=== PATIENT | female | born 1965 | race Two or more races ===

== ENCOUNTER → 2025-03-08 | Day surgery (SDC) | payer MEDICAID ==
[2025-03-06 10:10] LABS: Hematocrit 42.0 % (36.0-46.0); Hemoglobin 14.5 g/dL (12.2-16.2); Mean Corpuscular Hemoglobin 29.4 pg (28.0-32.0); Mean Corpuscular Volume 85.5 fL (80.0-100.0); Nucleated Red Blood Cells % 0.1 %
[2025-03-06 10:27] LABS: INR 0.93 (0.9-1.15); Partial Thromboplastin Time 26.4 SEC (24.5-34.5); Prothrombin Time 9.9 sec (9.3-11.8)
[2025-03-06 10:39] LABS: Alanine Aminotransferase 21 U/L (7-40); Albumin 4.8 g/dL (3.2-4.8); Alkaline Phosphatase 104 U/L (46-116); Anion Gap 7 (5-15); BUN/Creatinine Ratio 13.9 (10.0-20.0); Blood Urea Nitrogen 10 mg/dL (9-23); Calcium 10.3 mg/dL (8.7-10.4); Carbon Dioxide 31 mmol/L (20-31); Chloride 104 mmol/L (98-107); Glucose 105 mg/dL (74-106); Potassium 4.2 mmol/L (3.5-5.1); Sodium 142 mmol/L (136-145); Total Protein 7.3 g/dL (5.7-8.2)
[2025-03-06 10:40] LABS: Bilirubin, Total 0.6 mg/dL (0.2-1.0)
[~2025-03-08] VITALS: Ht 152.4 cm; Wt 72.6 kg
[~2025-03-08] MED LIST: LEVO88TA4 PO; LISI40TA16 PO; MIDAZOLAM HCL 2MG/2ML 2ml VIAL (1mg/ml) ONE; SEMA2INJ3 SC; SERT-206 PO
[2025-03-08] MEDS: fentaNYL CITRATE 100 MCG/2 ML VL ONE (11:54)
[2025-03-08] MEDS: MIDAZOLAM HCL 2MG/2ML 2ml VIAL (1mg/ml) ONE (11:54)
--- NOTE | 2025-03-08 12:08 | DVHNC2 ---
Procedure - PROCEDURE DATE: MARCH 08, 2025 PERFORMED BY: DR. JOE REFERRING PROVIDER:DR ARNETT PROCEDURE PERFORMED: 1. COLONOSCOPY WITH MODERATE SEDATION PREPROCEDURE DIAGNOSIS: 1. COLON CANCER SCREENING 2. CONSTIPAITON POSTPROCEDURE DIAGNOSIS: 1. INTERNAL/EXTERNAL HEMORRHOIDS 2. MODERATE DIVERTICULOSIS MEDICATIONS USED: 2MG OF VERSED AND 25 MCG OF FENTANYL IV INDICATIONS FOR PROCEDURE: THE PATIENT IS A 59-YEAR-OLD FEMALE PRESENTS FOR OUTPATIENT COLONOSCOPY FOR SCREENING DETAILS OF THE PROCEDURE: INFORMED CONSENT WAS OBTAINED AFTER RISKS BENEFITS AND ALTERNATIVES WERE DISCUSSED AT LENGTH WITH THE PATIENT. THE PATIENT GAVE CONSENT TO THE PROCEDURES WELL A MEDICATION USED FOR SEDATION. THE PATIENT WAS PLACED IN THE LEFT LATERAL DECUBITUS POSITION. DIGITAL RECTAL EXAMINATION SHOWED SMALL EXTERNAL HEMORRHOIDS. AN OLYMPUS VARIABLE TORSION PEDIATRIC COLONOSCOPE WAS INSERTED INTO THE RECTUM ADVANCE THE CECUM. THE SCOPE WAS THEN WITHDRAWN. THE PREP WAS GOOD WITH ONLY SMALL AMOUNTS OF STOOL. THERE WERE NO LARGE POLYPS, MASSES, STRICTURES, OR ARTERIOVENOUS MALFORMATION SEEN. THE PATIENT HAD MODERATE MODERATE LEFT SIDED DIVERTICULOSIS. RETROFLEXION SHOWED INTERNAL HEMORRHOIDS. PATIENT TOLERATED THE PROCEDURE WELL. COLONOSCOPY START TIME: 1157 COLONOSCOPY CECUM TIME:1200 COLONOSCOPY END TIME: 1206 PREP SCORE: 7 IMPRESSION: 1. INTERNAL AND EXTERNAL HEMORRHOIDS 2. DIVERTICULOSIS RECOMMENDATIONS: 1. FOLLOW UP WITH PRIMARY CARE PHYSICIAN 2. HIGH-FIBER DIET 3. REPEAT COLONOSCOPY IN 10 YEARS UNLESS INDICATED OTHERWISE I WOULD LIKE TO THANK DR. GALVIN FOR THE REFERRAL SARITHA JOE MD Mar 08, 2025 12:08
[2025-03-08 12:10] VITALS: PULSE 56; RESP 12; O2SAT 100
[2025-03-08 13:05] VITALS: BP 126/50; PULSE 51; RESP 14; O2SAT 100
== END | disposition home or self-care (01) ==
LOC: GI 10:02
PROVIDERS: ATTEND Specialist
DX: K59.04 Chronic idiopathic constipation (principal); K57.30 Diverticulosis of large intestine without perforation or abscess without bleeding; K64.8 Other hemorrhoids; K64.4 Residual hemorrhoidal skin tags; I10 Essential (primary) hypertension; E03.9 Hypothyroidism, unspecified; E11.9 Type 2 diabetes mellitus without complications; Z79.890 Hormone replacement therapy; Z79.899 Other long term (current) drug therapy
CPT/HCPCS: 36415; 45378; 80053; 82962; 85025; 85610; 85730; J2250; J3010; 99152